=== PATIENT | female | born 1975 | race Caucasian/White ===

== ENCOUNTER 2021-08-18 12:35 | Emergency (ER) | payer OTHER ==
[2021-08-18] MEDS ORDERED: HYDROmorphone 1 MG/ML CARPUJECT IVP STA ×2 (12:52→14:42)
[2021-08-18] MEDS ORDERED: KETOROLAC 15 MG/ML VIAL IVP STA (12:52)
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
--- NOTE | 2021-08-18 13:56 | XRAY Report ---
PROCEDURE: Shoulder 3 View LT INDICATIONS: shoulder inj TECHNIQUE: 3 views of the shoulder were acquired. COMPARISON: None. FINDINGS: Bones: No fractures or dislocations. No suspicious bony lesions. Visualized ribs appear intact. Soft tissues: No suspicious soft tissue calcifications. IMPRESSION: No visualized acute fracture or dislocation. However, occult injury cannot be excluded. Recommend short interval imaging follow-up in 7-10 days as clinically indicated for additional evalua tion. Reviewed by: Olamide Valladares MD on 08/18/2021 1:55 PM PDT Approved by: Olamide Valladares MD on 08/18/2021 1:55 PM PDT Station ID: [id number]
[2021-08-18] MEDS ORDERED: IOPAMIDOL-300 100 ML VIAL ONE (13:58)
[2021-08-18] MEDS ORDERED: IOPAMIDOL-300 100 ML VIAL IVP ONE (14:10)
--- NOTE | 2021-08-18 14:19 | CT Report ---
PROCEDURE: CERVICAL SPINE WO INDICATIONS: chest inj/distracting inj TECHNIQUE: Noncontrast 3 mm thick sections acquired from the skull base to the T4 level. Sagittal and coronal r eformats were then constructed. For radiation dose reduction, the following was used: automated exp osure control, adjustment of mA and/or kV according to patient size. COMPARISON: Correlation is made with the accompanying chest CT, 08/18/2021. FINDINGS: Image quality: Excellent. Bones: No fractures or dislocations. Visualized superior ribs are intact. Mild disc space narrowing can be seen at the C5-C6 level, with associated endplate irregularity and s clerosis. Mild posteriorly directed endplate osteophytes can be seen at this level. Milder degenerati ve changes are seen elsewhere. Soft tissues: Prevertebral soft tissues are normal in thickness. No paravertebral hematomas. No ap ical pneumothoraces. IMPRESSION: Negative for cervical spine fracture. Focal C5-C6 degenerative change noted. Reviewed by: Rick Guevara MD on 08/18/2021 1:17 PM [facility] Approved by: Rick Guevara MD on 08/18/2021 1:17 PM [facility] Station ID: [id number]
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
[2021-08-18] MEDS ORDERED: LIDOCAINE OINTMENT 5% 35.44 GM TUBE TOP STA (14:30)
[2021-08-18 15:03] VITALS: BP 104/66
== END 2021-08-18 15:23 | disposition home or self-care (01) ==
LOC: ED 12:35
DX: S42.102A Fracture of unspecified part of scapula, left shoulder, initial encounter for closed fracture (principal); S60.512A Abrasion of left hand, initial encounter; V19.9XXA Pedal cyclist (driver) (passenger) injured in unspecified traffic accident, initial encounter; Y93.55 Activity, bike riding
CPT/HCPCS: 71260; 72125; 73030; 96374; 96375; 96376; 99283; 99284; A9270; J1170; Q9967